=== PATIENT | female | born 1950 | race Caucasian/White ===

== ENCOUNTER 2019-03-19 05:10 | Day surgery (SDC) ==
[2019-03-14 08:28] LABS: URINE SOURCE CLEAN CATCH
[2019-03-14 08:41] LABS: BASO# 0.05 X1000 (0.0-0.2); BASO% 0.8 % (0.0-0.8); EOS# 0.24 X1000 (0.0-0.7); EOS% 3.7 % (0.0-10.0); HEMATOCRIT 39.1 % (37.0-47.0); HEMOGLOBIN 12.5 g/dL (12.0-16.0); LYMPH# 2.26 X1000 (1.2-3.4); LYMPH% 34.7 % (20.5-51.1); MCH 31.6 PG (27-31); MCV 98.7 FL (81-99); MONO% 7.7 % (1.7-9.3); MPV 8.8 FL (7.4-10.4); NEUT# 3.47 X1000 (1.4-6.5); NEUT% 53.1 % (42.2-75.2); PLT 286 X1000 (130-400); RBC 3.96 XMIL (4.2-5.4); WBC 6.52 X1000 (4.8-10.8)
[2019-03-14 08:49] LABS: BILIRUBIN URINE NEGATIVE (NEGATIVE); BLOOD URINE NEGATIVE (NEGATIVE); COLOR YELLOW; GLUCOSE URINE NEGATIVE (NEGATIVE); KETONE URINE NEGATIVE (NEGATIVE); LEUKOCYTES URINE NEGATIVE (NEGATIVE); NITRITE URINE NEGATIVE (NEGATIVE); PROTEIN URINE NEGATIVE (NEGATIVE); SP GRAVITY URINE 1.007; TURBIDITY URINE CLEAR (CLEAR); UROBILINOGEN URINE NORMAL (NORMAL)
[2019-03-14 08:50] LABS: UR EPITHELIAL CELLS <10 /HPF (<10); URINE BACTERIA NEGATIVE /HPF; URINE RBC <10 /HPF (<10); URINE WBC <10 /HPF (<10)
[2019-03-14 08:57] LABS: INR 1.01; PROTIME 13.4 Seconds (11.0-16.0)
[2019-03-14 08:58] LABS: PTT 31.1 Seconds (22.3-41.8)
[2019-03-14 09:08] LABS: AGAP 10; ALBUMIN 4.2 g/dL (3.5-5.0); BUN 13 mg/dL (8-22); CALCIUM 9.6 mg/dL (8.8-10.2); CHLORIDE 101 mmol/L (98-107); COSMO 273; CREATININE 0.7 mg/dL (0.5-0.9); ESTIMATED GFR > 60; GLUCOSE 87 mg/dL (70-104); POTASSIUM 4.2 mmol/L (3.5-5.1); SODIUM 137 mmol/L (136-145); TCO2 26 mmol/L (25-35)
[2019-03-19] MEDS ORDERED: REGLAN ONE (06:08)
[2019-03-19] MEDS ORDERED: PEPCID ONE (06:08)
[2019-03-19] MEDS ORDERED: COLACE ONE (06:08)
[2019-03-19] MEDS ORDERED: LR 1,000 ML ONE (06:09)
[2019-03-19] MEDS ORDERED: LYRICA ONE (06:09)
[2019-03-19] MEDS ORDERED: KEFZOL 1 GM/D5W 1 GM/50 ML IVPB ONE (06:09)
[2019-03-19] MEDS ORDERED: SODIUM CHLORIDE 0.9% 10 ML ONE (06:14)
[2019-03-19] MEDS ORDERED: MARCAINE 0.25% ONE (06:14)
[2019-03-19] MEDS ORDERED: VERSED ONE (06:44)
[2019-03-19] MEDS ORDERED: DIPRIVAN 1% ONE (06:45)
[2019-03-19] MEDS ORDERED: XYLOCAINE-MPF 2% ONE (06:47)
[2019-03-19] MEDS ORDERED: ROBINUL ONE (06:47)
[2019-03-19] MEDS ORDERED: TORADOL ONE ×2 (06:48→07:37)
[2019-03-19] MEDS ORDERED: CYKLOKAPRON 1,000 MG/NS 1,000 MG/100 ML IVPB ONE ×2 (06:48→06:49)
[2019-03-19] MEDS ORDERED: VANCOMYCIN ONE (06:48)
[2019-03-19] MEDS ORDERED: SODIUM CHLORIDE 0.9% ONE (06:48)
[2019-03-19] MEDS ORDERED: EXPAREL 1.3% ONE (06:48)
[2019-03-19] MEDS ORDERED: DURAMORPH ONE (06:48)
[2019-03-19] MEDS ORDERED: MARCAINE 0.25% PF ONE (06:49)
[2019-03-19] MEDS ORDERED: OFIRMEV 1000 MG/ISOTONIC SOLN 1,000 MG/100 ML BOTTLE ONE (07:37)
[2019-03-19] MEDS ORDERED: DECADRON ONE (07:37)
[2019-03-19 08:20] LABS: URINE SOURCE CATH
[2019-03-19 08:27] LABS: BILIRUBIN URINE NEGATIVE (NEGATIVE); BLOOD URINE NEGATIVE (NEGATIVE); COLOR YELLOW; GLUCOSE URINE NEGATIVE (NEGATIVE); KETONE URINE NEGATIVE (NEGATIVE); LEUKOCYTES URINE NEGATIVE (NEGATIVE); NITRITE URINE NEGATIVE (NEGATIVE); PROTEIN URINE NEGATIVE (NEGATIVE); SP GRAVITY URINE 1.014; TURBIDITY URINE CLEAR (CLEAR); UR EPITHELIAL CELLS <10 /HPF (<10); URINE BACTERIA NEGATIVE /HPF; URINE RBC <10 /HPF (<10); URINE WBC <10 /HPF (<10); UROBILINOGEN URINE NORMAL (NORMAL)
[2019-03-19] MEDS ORDERED: NS 1,000 ML ONE (09:25)
[2019-03-19] MEDS ORDERED: MILK OF MAGNESIA PO PRN (11:00)
[2019-03-19] MEDS ORDERED: OXY IR PO PRN ×2 (11:00)
[2019-03-19] MEDS ORDERED: MORPHINE IV PRN ×3 (11:00)
[2019-03-19] MEDS ORDERED: ZOFRAN IV PRN (11:00)
[2019-03-19] MEDS ORDERED: ZOFRAN ODT PO PRN (11:00)
[2019-03-19] MEDS ORDERED: PATIENT'S OWN MED PO PRN (13:24)
[2019-03-19] MEDS: KEFZOL 1 GM/D5W 1 GM/50 ML IVPB IV SCH ×2 (15:43→23:07)
[2019-03-19] MEDS: TYLENOL PO SCH ×2 (15:43→20:41)
[2019-03-19] MEDS: ULTRAM PO SCH ×2 (15:45→20:41)
[2019-03-19] MEDS: NS 1,000 ML IV SCH ×2 (15:46→20:43)
[2019-03-19] MEDS: LYRICA PO SCH (20:41)
[2019-03-19] MEDS: PERIDEX MT SCH (20:43)
[2019-03-20] MEDS: ULTRAM PO SCH ×3 (03:26→17:13)
[2019-03-20] MEDS: TYLENOL PO SCH ×4 (03:27→17:15)
[2019-03-20 06:52] LABS: HEMATOCRIT 30.9 % (37.0-47.0); HEMOGLOBIN 10.1 g/dL (12.0-16.0)
[2019-03-20 07:27] LABS: AGAP 8; BUN 11 mg/dL (8-22); CALCIUM 8.9 mg/dL (8.8-10.2); CHLORIDE 105 mmol/L (98-107); COSMO 272; CREATININE 0.7 mg/dL (0.5-0.9); ESTIMATED GFR > 60; GLUCOSE 77 mg/dL (70-104); POTASSIUM 4.2 mmol/L (3.5-5.1); SODIUM 137 mmol/L (136-145); TCO2 24 mmol/L (25-35)
[2019-03-20] MEDS: NS 1,000 ML IV SCH (08:27)
[2019-03-20] MEDS ORDERED: WELLBUTRIN SR PO SCH (09:00)
[2019-03-20] MEDS ORDERED: PROZAC PO SCH (09:00)
[2019-03-20] MEDS ORDERED: ASPIRIN PO SCH (09:00)
[2019-03-20] MEDS ORDERED: DECADRON IV ONE (09:00)
[2019-03-20] MEDS ORDERED: MOBIC PO SCH (09:00)
[2019-03-20] MEDS ORDERED: ARIMIDEX PO SCH (09:00)
[2019-03-20] MEDS ORDERED: PEPCID PO SCH (09:00)
[2019-03-20] MEDS: PERIDEX MT SCH (09:23)
[2019-03-20] MEDS: LYRICA PO SCH (09:24)
[2019-03-20 16:30] VITALS: BP 160/84
== END 2019-03-20 18:52 | disposition home health service (06) ==
LOC: OR 05:10 → 4N 05:10 → OR 03-20 18:52
PROVIDERS: ATTEND Orthopaedic Surgery